=== PATIENT | female | born 1980 | race African-American/Black ===

== ENCOUNTER 2016-06-27 21:05 | Emergency (ER) | payer OTHER ==
[~2016-06-27] VITALS: Ht 167.6 cm; Wt 59.0 kg
[~2016-06-27 21:05] MED LIST: IBUPROFEN800 MG PO; MACROBID100 MG PO; PRENATAL1 TA2 PO; PROCTOSOL-HC2.5% RC
--- NOTE | 2016-06-27 21:38 | ED GENERAL ADULT ---
History of Present Illness General Chief Complaint: General Adult Stated Complaint: " SINCE WEDNESDAY LT ARM/BILAT. LEG/ CP" Source: patient Exam Limitations: no limitations Vital Signs & Intake/Output Vital Signs & Intake/Output Vital Signs Date Time Temp Pulse Resp B/P Pulse O2 O2 Flow FiO2 Ox Delivery Rate 06/27 2350 97.1 65 18 99/54 98 Room Air 06/27 2237 99 Room Air 06/278 98.7 81 18 125/69 97 Room Air ED Intake and Output 06/28 0000 06/27 1200 Intake Total 0 Output Total Balance 0 Intake, Oral 0 Patient 130 lb Weight Allergies Coded Allergies: MDX - No Known Allergies - Nka (NO KNOWN ALLERGIES - NKA) (07/28/13) Reconcile Medications Alprazolam (Xanax) 0.25 MG TABLET 1 TAB PO Q12 PARASTHESIA Hydrocortisone (Proctosol-Hc) 2.5 % CREAM.APPL 1 ASHISH RC BID RECTAL IRRITATION (Reported) apply to affected area(s) Ibuprofen 800 MG TABLET 800 MG PO Q6P PRN PAIN SCALE 4-6 PNV95/FERROUS FUMARATE/FA ( Formula Tablet) 28 MG IRON-800 MCG TABLET 1 TAB PO ONCE VITAMIN SUPPORT (Reported) Triage Note: PT TO TRIAGE WITH C/O RESTLESS LEGS AND TINGLING TO BILAT LE, ALSO TINGLING TO L ARM AND L SIDE OF CHEST, CHEST PAIN 03/24 SINCE WEDNESDAY. EKG DONE IN [place] - NSR 70'S. VSS. NO NEURO DEFICIT NOTED. Triage Nurses Notes Reviewed? yes Onset: Abrupt Duration: day(s): Timing: recent history : No Patient currently breastfeeds: No HPI: 06/27/16 10:00 am This is a 35-year-old female presents to the emergency department for numbness and tingling to her arms and legs. According to the patient she was in her usual state until Wednesday when she developed numbness and tingling. She says that the numbness and tingling goes from her elbows to her shoulders bilaterally and also on the right leg up to her buttocks. She also has some pain in her posterior thigh. No abdominal pain no fever no rash no tick bite. She denies any significant past medical history. The onset of the symptoms were abrupt, the duration was since Wednesday, the severity is significant; as her symptoms required her to come to the emergency department for care She denies any chest pain or shortness of breath on my questioning. She says it 's just the tingling and a restless feeling in her leg. Past History Travel History Traveled to [place] past 21 day No Medical History Any Pertinent Medical History? see below for history Surgical History Surgical History: none Psychosocial History What is your primary language [place] Tobacco Use: Never used Family History Hx Contributory? No Review of Systems Review of Systems Constitutional: Denies: fever. EENTM: Denies: visual changes. Respiratory: Denies: short of breath. Cardiovascular: Denies: chest pain. GI: Denies: abdominal pain. Genitourinary: Reports: no symptoms. Musculoskeletal: Denies: back pain. Skin: Denies: rash. Neurological/Psychological: Denies: headache. Hematologic/Endocrine: Denies: bruising, bleeding. Physical Exam Physical Exam General Appearance: well developed/nourished, alert, awake, anxious, mild distress Head: atraumatic, normal appearance Eyes: Bilateral: normal appearance, PERRL, EOMI. Ears, Nose, Throat: normal pharynx, normal ENT inspection Neck: normal inspection, supple, full range of motion Respiratory: normal breath sounds, chest non-tender, no respiratory distress Cardiovascular: regular rate/rhythm, no murmur Peripheral Pulses: 4+ radial (R), 4+ radial (L) Gastrointestinal: soft, non-tender Back: normal range of motion, no vertebral tenderness Extremities: normal inspection, normal capillary refill, normal range of motion, no edema Neurologic/Psych: no motor/sensory deficits, awake, alert, oriented x 3, normal gait, normal mood/affect Reflexes: 4+: tricep (L), tricep (L). Skin: intact, normal color, warm/dry Core Measures ACS in differential dx? No CVA/TIA Diagnosis: No Severe Sepsis Present: No Septic Shock Present: No Progress Differential Diagnoses I considered the following diagnoses in my evaluation of the patient: [Fatou Hines syndrome, transverse myelitis, aortic dissection, Lyme disease, electrolyte derangement, anxiety reaction, cervical radiculopathy, lumbar radiculopathy] Plan of Care: Orders Procedure Date/time Status Add-on Test (ER Only) 06/27 2150 Active URINE 06/27 2145 Complete URINALYSIS 06/27 2145 Complete TROPONIN LEVEL 06/27 2145 Complete LYME TITRE 06/27 2145 Active D-DIMER 06/27 2145 Complete COMPREHENSIVE METABOLIC PANEL 06/27 2145 Complete CBC WITHOUT DIFFERENTIAL 06/27 2145 Complete EKG 06/28 2107 Active Laboratory Tests 06/27/16 2310: D-Dimer < 200 06/27/16 2307: Urine Color YEL, Urine Clarity CLEAR, Urine pH 6.0, Ur Specific [place] 1.025, Urine Protein NEG, Urine Ketones NEG, Urine Nitrite NEG, Urine Bilirubin NEG, Urine Urobilinogen 1.0, Ur Leukocyte Esterase NEG, Ur Microscopic EXAM NOT REQUIRED, Urine Hemoglobin NEG, Urine Glucose NEG, Urine Test NEGATIVE 06/27/162200: Anion Gap 12, Estimated GFR > 60, BUN/Creatinine Ratio 15.0, Glucose 114 H, Calcium 9.2, Total Bilirubin 0.6, AST 17, ALT 26, Alkaline Phosphatase 84, Troponin I < 0.01, Total Protein 7.4, Albumin 4.2, Globulin 3.2, Albumin/ Globulin Ratio 1.3, CBC w Diff NO MAN DIFF REQ, RBC 4.91, MCV 75.2 L, MCH 24.3 L, RDW 15.5 H, MPV 7.3 L, Gran % 46.4, Lymphocytes % 39.7, Monocytes % 11.3 H , Eosinophils % 1.7, Basophils % 0.9, Absolute Granulocytes 1.9, Absolute Lymphocytes 1.6, Absolute Monocytes 0.5, Absolute Eosinophils 0.1, Absolute Basophils 0, PUBS MCHC 32.3 L, Lyme Disease Antibody Pending Initial ED EKG: NSR Departure Departure Disposition: HOME OR SELF CARE Condition: Stable Clinical Impression Primary Impression: Myalgia Secondary Impressions: Paresthesia Referrals: CHEKO MERINO APRN (PCP/Family) Departure Forms: Customer Survey General Discharge Information Prescriptions: Current Visit Scripts Alprazolam (Xanax) 1 TAB PO Q12 #10 TAB Comments Labs were drawn. An EKG was done which was normal. The patient was for reevaluation. She slept comfortably awaiting the lab results. Her labs are completely normal. D-dimer is negative. Troponin was negative. Electrolytes are normal. Lyme titer is pending. I considered aortic dissection- she has good equal radial pulses, no chest or back pain, she is 35 years old, no history of hypertension, no murmur. She has no pain at all. I considered transverse myelitis - she has no objective sensory or motor deficits, referral manager strength is equal bilaterally, hip flexion is excellent, reflexes are normal. I considered Guillain-Hines syndrome-similarly to above she has no objective sensory or motor deficits, referral manager strength is equal bilaterally, hip flexion is excellent, reflexes are normal. I considered Lyme disease-there is no history of rash or tick bite. Lyme titer is pending. The patient tells me she is under tremendous stress right now, and that the feeling that he has in her leg is like that once to jump out of there, and is more like a restless leg syndrome. I will treat her with Xanax. She will return immediately should she have weakness or feel worse in anyway. She will call me on Wednesday for the results of the Lyme titer and I'll reassess her symptoms. She was told to follow-up with her primary care doctor on Wednesday or to return to the emergency department if worse. Critical Care Note Critical Care Note Critical Care Time: non-applicable
[2016-06-27 22:11] LABS: ABSOLUTE BASOPHIL COUNT 0 /CUMM (0.0-0.2); ABSOLUTE EOSINOPHIL COUNT 0.1 /CUMM (0.0-0.7); ABSOLUTE GRANULOCYTE CT 1.9 /CUMM (1.4-6.5); ABSOLUTE LYMPH COUNT 1.6 /CUMM (1.2-3.4); ABSOLUTE MONOCYTE COUNT 0.5 /CUMM (0.10-0.60); BASOPHIL % 0.9 % (0.0-2.0); EOSINOPHIL % 1.7 % (0-5); GRANULOCYTE % 46.4 % (42.2-75.2); MEAN CORPUSCULAR HGB 24.3 PG (27.0-31.0); MEAN CORPUSCULAR HGB CONC 32.3 G/DL (33.0-37.0); MEAN CORPUSCULAR VOLUME 75.2 FL (81.0-99.0); MEAN PLATELET VOLUME 7.3 FL (7.4-10.4); PLATELET COUNT 243 /CUMM (130-400); RBC DISTRIBUTION WIDTH 15.5 % (11.5-14.5); RED BLOOD CELL CT 4.91 /CUMM (4.20-5.40); WHITE BLOOD CELL COUNT 4.1 /CUMM (4.8-10.8)
[2016-06-27] MEDS ORDERED: XANAX0.25 M1 PO (23:44)
[2016-06-27 23:50] VITALS: BP 99/54
== END 2016-06-27 23:53 ==
LOC: ERH 21:05
PROVIDERS: Emergency Medicine
DX: M79.1 Myalgia (principal); R20.2 Paresthesia of skin
CPT/HCPCS: 86618; 81003; 81025; 93005; 93010

== ENCOUNTER → 2016-09-30 | Day surgery (SDC) | payer OTHER ==
[~2016-09-30] VITALS: Ht 167.6 cm; Wt 61.2 kg
[~2016-09-30] MED LIST changes: +XANAX0.25 M1 PO
--- NOTE | 2016-09-30 16:49 | Operative Report ---
Operative/Inv Procedure Report Surgery Date: 09/30/16 Name of Procedure: Perineocele repair Pre-Operative Diagnosis: Perineocele Post-Operative Diagnosis: same Estimated Blood Loss: less than 50ml Surgeon/Piece Jobber: ROSE KHAN MD Anesthesia: laryngeal mask airway Operative/Procedure Note Note: The patient was brought to the operating room and placed on the OR table in the dorsal supine position. She was given adequate anesthesia and intubated with an LMA. She was repositioned in a modified dorsal lithotomy. She was prepped and draped in usual sterile fashion. Examination under anesthesia revealed an extremely lax vagina with no or minimal tone. 2 Allis clamps were placed on the hymenal ring. A navi-shaped lesion was removed the from the vagina and onto the perineal body and undermined with Metzenbaum scissors. This was sent to pathology. Gen. defect was oversewn using 3-0 Polysorb in a running nonlocking fashion. Was brought down to the perineal body after the hymenal ring was closed. The perineal body was fortified with 0 Polysorb with [id number] sutures. A running nonlocking extension of the initial suture was brought down to the perineal body and up factor in a subcuticular fashion. It was closed on the other side of the introitus. Hemostasis was good the patient was then awakened and sent to recovery in good condition all needle, sponge, and inspected counts were correct at the end of the procedure 2.
== END ==
LOC: STS 04:41
DX: N81.81 Perineocele (principal); N81.89 Other female genital prolapse
CPT/HCPCS: 36415; 81025; 88304; J0131; J2250